=== PATIENT | female | born 1995 | race Caucasian/White ===

== ENCOUNTER 2019-04-19 20:44 | Emergency (ER) | payer BC, SELFPAY ==
[2019-04-19 20:50] VITALS: BP 130/87; PULSE 70; RESP 18; TEMP 36.8; O2SAT 98
[2019-04-19] MEDS: Ketorolac 30 MG/ML VIAL IM (22:01)
--- NOTE | 2019-04-19 22:02 | NUR.NOTE ---
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 Nursing Note:
[2019-04-19] MEDS: LORazepam 1 MG TAB PO (22:06)
--- NOTE | 2019-04-19 22:14 | ED.GENADUL_ITS ---
Discharge Plan Disposition Patient Disposition: HOME Condition: Good Discharge Details Chief Complaint: Abd Prob Clinical Impression: Vaginal bleeding Primary Care Provider: Aimee Boyce ED Provider: Zack Dill Home Meds and New Rx's Prescriptions: New amoxicillin-pot clavulanate [Augmentin] 875-125 mg tablet 1 tab PO BID 10 Days Qty: 20 RF: 0 No Action ibuprofen 200 MG capsule 400 mg PO PRN RF: 0 acetaminophen [Acetaminophen Extra Strength] 500 mg Tablet 1,000 mg PO PRN PRNRF: 0 Discharge Instructions Instructions: Dysfunctional Uterine Bleeding (ED) Additional Instructions: At this time it is likely that the bleeding may and cramping may be secondary to the intrauterine device, but also potentially secondary to postprocedural component. Please continue to take 1000 mg of Tylenol every 6 hours and 800 mg of ibuprofen every 6 hours. If you notice continuation of your symptoms after 48 hours please return immediately for reassessment. If you notice any worsening of your symptoms, or any new symptoms such as vomiting, diarrhea, fever, chills, shortness of breath, chest pain, numbness, weakness, or fainting , please return immediately to the emergency department for reevaluation. Please follow up with your primary care provider as soon as possible for reassessment and reevaluation. As always, it was a pleasure participating in your medical care today. Medical Decision Making This is a 23-year-old female with a past medical history of 6 years ago in the subsequent 6 days ago as well, who had an IUD placed at the time of the . It was a surgical procedure. She was 5 weeks along in her . She had mild improvement of her cramping and bleeding after the initial event, and then over the last 2 or 3 days it is somewhat returned. No vomiting or diarrhea. No other complaints. Physical exam demonstrates no abdominal suprapubic or pelvic tenderness whatsoever. Pelvic exam demonstrates small amount of fibrous tissue and mucus on the strings from the IUD, but no cervical motion tenderness no tenderness on bimanual exam. Aside for the minimal bleeding there is no evidence of other significant abnormality. Vital signs are notably unremarkable, no tachycardia, no hypotension. No pale conjunctiva. Signs and symptoms are inconsistent with significant anemia. With no abdominal or pelvic tenderness whatsoever I feel that an acute life-threatening pelvic or abdominal etiology is unlikely. Symptoms are inconsistent with endometritis as well as ectopic . No ultrasound is available currently. I did discuss getting a CT scan but patient would like to hold off for the time being, and clinically I see no indication with no pain on exam. I did contact the [facility] freight coordinator on-call Dr. Vargas, and discussed the case with him. He feels that this is likely based on the patient's exam and history secondary to either mild delayed bleeding post procedure or more likely secondary to cramping and bleeding from the Mirena device. He recommends continued NSAIDs, and out of an abundance of precaution antibiotics just to be safe. His recommendation was for Augmentin. This time we will give a small amount of Ativan as the patient is notably anxious and is requesting something for her anxiety. Additionally we will give Toradol. We will observe and if she has resolution of her mild intermittent cramping feel that she can likely be discharged with close follow-up back home or prompt return if she has continuation or worsening of her symptoms. 11:18 PM Patient's vaginal Pap smear is negative for any abnormalities. Pending gonorrhea and chlamydia. Patient does not want treatment for that at this time. On reassessment the patient is feeling much better. She still has no pain on exam, he states that her anxiety and cramping is notably improved. She feels well to go home at this time. Urinalysis is negative for significant infection. I had a very long discussion with the patient, her sister, and her brother all regarding red flags for which to return the importance of prompt return if she has no improvement of her symptoms after 48 hours. She continues to demonstrate notable hemodynamic stability, shows no evidence of significant clinical anemia, acute surgical pathology in the abdomen or an acute life-threatening intrapelvic abnormality at this time clinically. I have extensively reviewed the treatment plan and discharge instructions with the patient and their family. I have addressed all patient concerns at this time. The patient and family was made aware of what symptoms to monitor for that would warrant a return to the emergency department. Discussed the plan with the patient and family, they demonstrate verbal understanding and agreement with our assessment and plan at this time. HPI General Date/Time Provider Initiated Documentation: 04/19/19 20:45 . HPI Narrative: This is a pleasant 23-year-old female who presents today for evaluation of pelvic cramping and bleeding. Patient states that 6 days ago she had an for her 5-week . This was performed in [place]. At that time there were no significant complications. She did have mild cramping and bleeding shortly afterwards but this seemed to resolve. She had an estrogen-based IUD placed at that time. Since then over the last 2 to 3 days she has had return of the cramping very mild bleeding. She has been taking Tylenol and Motrin and this is notably improved her symptoms. She does admit to a previous 6 years ago. She denies any other complaints. She denies any previous abdominal surgeries. She states specifically that aside for the cramping she has no other pain whatsoever. She denies any history of STDs. She is currently out visiting her family for [place]. She has no other complaints at this time. No other modifying factors. Related Data Home Medications Medication Instructions Recorded Confirmed ibuprofen 400 mg PO PRN 12/07/13 04/19/19 acetaminophen [Acetaminophen Extra 1,000 mg PO PRN PRN 04/19/19 04/19/19 Strength] amoxicillin-pot clavulanate 1 tab PO BID 10 Days #20 tab 04/19/19 [Augmentin] Previous Rx's Medication Instructions Recorded amoxicillin-pot clavulanate 1 tab PO BID 10 Days #20 tab 04/19/19 [Augmentin] Allergies Allergy/AdvReac Type Severity Reaction Status Date / Time No Known Allergies Allergy Unverified 04/19/19 20:58 General Stated Complaint: Abd Prob CHILANGO: 3 Review of Systems All systems reviewed & are unremarkable except as noted in HPI and below PFSH Social History Smoking/Tobacco Use Status: Current every day Drug use: Never Exam Narrative Exam Narrative: 1.Const: Well-nourished, Well-developed, appearing stated age 2.Eyes: PERRL, no conjunctival injection, and symmetrical lids. 3.ENT: Atraumatic external nose and ears. Moist MM. Neck: Symmetric, trachea midline, No thyromegaly. 4.CVS: +S1/S2, No murmurs or gallops. Peripheral pulses 2+ and equal in all extremities. Brisk capillary refill in all extremities. 5.RESP: Unlabored respiratory effort. Clear to auscultation bilaterally. No wheezes rales or rhonchi 6.GI: Soft, Nontender/Nondistended, No hepatosplenomegaly. No guarding or rebound. No abdominal pain or tenderness whatsoever including in the suprapubic and pelvic regions. Pelvic exam was performed with female nurse Jenna at bedside. Pelvic exam demonstrates minimal blood in the vaginal vault, small amount of mucus and fibrous tissue are noted at the base of the cervix attached to the strings from the IUD. No cervical motion tenderness whatsoever. No active bleeding. No profuse hemorrhage. Bimanual exam demonstrates no significant tenderness whatsoever. 7.MSK: Normocephalic/Atraumatic, Extremities w/o deformity or ttp No cyanosis or clubbing, Normal movement of all extremities 8.Skin: Warm, Dry. No rashes or lesions. 9.Neuro: oil and gas drafter II-XII grossly intact. Sensation grossly intact, no focal neurologic deficits. 10.Psych: (AAO) x3. Appropriate mood and affect Course Vital Signs Vital signs: Vital Signs Temperature 36.8 C 04/19/19 20:50 Pulse 70 04/19/19 20:50 Respiratory Rate 18 04/19/19 20:50 Blood Pressure 130/87 04/19/19 20:50 Pulse Oximetry 98 04/19/19 20:50 Temperature 36.8 C 04/19/19 20:50 Temperature Source Skin 04/19/19 20:50 Pulse 70 04/19/19 20:50 Respiratory Rate 18 04/19/19 20:50 Blood Pressure 130/87 04/19/19 20:50 Blood Pressure Position Sitting 04/19/19 20:50 Pulse Oximetry 98 04/19/19 20:50 Oxygen Delivery Method Room Air 04/19/19 20:50 Oxygen Flow Rate 0 04/19/19 20:50 Pain Level 7 04/19/19 22:01 Lab/Test Results Lab/Test Results: 04/19/19 21:45 Vaginal Vaginitis Screen - Pending
[2019-04-19 22:30] LABS: Bilirubin Negative (Negative); Blood Trace-lysed (Negative); Clarity Clear (Clear); Glucose Negative (Negative); Ketones Trace mg/dL (Negative); Leukocyte Esterase Negative (Negative); Nitrite Negative (Negative); Specific Gravity 1.025 (1.005-1.025); Urobilinogen 0.2 EU/dL (Up TO 0.2)
[2019-04-19 22:38] LABS: Bacteria Rare HPF (Negative); Crystals Negative HPF (Negative); Epithelial Cells Moderate HPF (Negative); Mucus Moderate (Negative); RBC 0-2 HPF (0-2); WBC 0-2 HPF (0-5)
[2019-04-19 22:39] LABS: C & S Indicated? No
[2019-04-19] MEDS: Amox. 875/Clav. 125, 2 TABS/BTL 1 TAB PO (23:40)
[2019-04-19 23:42] VITALS: BP 122/75; PULSE 89; RESP 17; TEMP 36.7; O2SAT 98
[2019-04-22 14:01] LABS: Chlamydia Result Negative (Negative); GC Result Negative (Negative)
== END 2019-04-19 23:45 | disposition home or self-care (01) ==
PROVIDERS: Emergency Provider Student in an Organized Health Care Education/Training Program; PCP Pediatrics
DX: O04.89 (Induced) termination of pregnancy with other complications (principal); N93.8 Other specified abnormal uterine and vaginal bleeding; R10.2 Pelvic and perineal pain; Y84.8 Other medical procedures as the cause of abnormal reaction of the patient, or of later complication, without mention of misadventure at the time of the procedure; Z97.5 Presence of (intrauterine) contraceptive device
CPT/HCPCS: 87491; 87591; 96372; 99284; 81003; 81015; 87480; 87510; 87660; J1885